=== PATIENT | female | born 1970 | race Caucasian/White ===

== ENCOUNTER → 2024-03-11 13:28 | Outpatient (REF) | payer OTHER, SELFPAY | LOC: HWRAD 13:28 | PROVIDERS: ATTENDING PHYSICIAN Family Medicine | DX: M25.552 Pain in left hip (principal) | CPT/HCPCS: 73523 ==

== ENCOUNTER → 2024-03-31 08:18 | Outpatient (REF) | payer OTHER, SELFPAY | LOC: HWWDC 08:18 | PROVIDERS: ATTENDING PHYSICIAN Obstetrics & Gynecology Gynecology; FAMILY PHYSICIAN Family Medicine | DX: Z12.31 Encounter for screening mammogram for malignant neoplasm of breast (principal) | CPT/HCPCS: 77063; 77067 ==

== ENCOUNTER 2024-05-06 22:40 | Observation (INO) | payer OTHER, SELFPAY ==
[2024-05-06 18:53] VITALS: BP 180/101
[2024-05-06 20:01] VITALS: BP 203/96
[2024-05-06 20:14] VITALS: BMI 34.7
--- NOTE | 2024-05-06 20:28 | ED.GENMED ---
History of Present Illness
General
Chief Complaint: Change in Mental Status
Source: patient
Exam Limitations: none
Time Seen by Provider: 05/06/24 20:13
Nursing documentation reviewed up to this point in time: agreed with
History of Present Illness
History of Present Illness:
Patient to ED for change in mental status. Spouse states davon attended a memorial today for her sponsor (recovering alcoholic). Gonzales spouse reports patient 'did not look right' States she was not answerering questions correctly. She
reports patient may have taken a double dose of her medications gonzales but does not know which ones. Patient states she has felt forgetful for the past year. SHe was seen by neurology last week, MRI and labs are pending. SHe is concerned that
she has dementia 'Like my mother'. Brought to ED by spouse for eval.
Past History
Past History
ED Past Medical History: None and Psychiatric
ED Past Surgical History: Other (tonsils, breast reduction, gastric sleeve)
Social History
Tobacco: Non-smoker
Alcohol: Former
Drug: Marijuana (Medical marijuana)
Personal: Partner
Living: with family
Employment: Employed
Family History
Family History: Negative Early CAD or Sudden
Review of Systems
Review of Systems
Allergies reviewed?: Yes
All Other Systems: ROS reviewed and negative except as documented in HPI and ROS
Constitutional: Reports no symptoms
EENT: Reports no symptoms
Respiratory: Reports no symptoms
Cardiac: Reports no symptoms
ABD/GI: Reports no symptoms
Musculoskeletal: Reports no symptoms
Skin: Reports no symptoms
Neurological: Reports other (forgetful)
Psychiatric: Reports depression and anxiety
Phy Exam
General Physical Exam
General Presentation: mild distress
General age: appears stated age
General Skin: warm and dry
General Habitus: normal
Cardiovascular Exam
Cardiovascular Exam: regular rate/rhythm
Pulmonary Exam
Pulmonary Exam: lungs clear and no respiratory distress
Gastrointestinal Exam
Gastrointestinal Exam: normal bowel sounds, non tender and soft
Neurological Exam
Neurological Exam: alert, CN II-XII intact, no motor deficits and no sensory deficits
NIH Stroke Score
Level of Consciousness: 0 - Alert
LOC questions: 0-Answers both correctly
LOC Commands: 0-Performs both correctly
Best Gaze: 0-Normal
Visual Rojas: 0=Normal, no visual loss
Facial palsy: 0=Normal, symmetrical
Motor - Right Arm: 0=No drift 10 seconds
Motor - Left Arm: 0=No drift 10 seconds
Motor - Right Le-No drift 5 seconds
Motor - Left Le-No drift 5 seconds
Limb Ataxia: 0-Absent
Sensation: 0-Normal
Best Language: 0-No aphasia
Dysarthria: 0-Normal
Extinction and Inattention: 0-No abnormality
Total Score:: 0
Musculoskeletal Exam
Musculoskeletal Exam: full ROM and neuro vasc intact
Skin Exam
Skin Exam: normal color, warm/dry and no rash
Psychiatric Exam
Psychiatric Exam: normal mood/affect
Course
Orders/Labs/Results
Orders:
Orders
05/06/24 20:10
Complete Blood Count/With Diff Urgent
Comprehensive Metabolic Panel Urgent
Urinalysis Reflex To Culture Urgent
Date Specimen was Collected: 05/06/24
Time Specimen was Collected: 19:00
Urine Microscopic Reflex Cult Urgent
Urine Culture Urgent
PRINCE Source: U
Specimen Description:
Date Specimen was Collected: 05/06/24
Time Specimen was Collected: 19:00
05/06/24 20:23
CT Head W/o Iv Contrast Urgent
Comment:
Reason For Exam: change in mental status.
05/06/24 20:25
Fentanyl, Urine Urgent
Urine Drug Abuse Screen Urgent
Date Specimen was Collected: 05/06/24
Time Specimen was Collected: 20:23
05/06/24 21:46
Cefepime HCl [Maxipime] 1,000 mg IV NOW STA
05/06/24 22:20
Admit/Transfer Patient As Directed
Co-Sign Provider:
Level of Care: Observation services
Assign to:: Medical/Surgical
Physician / Group: hospitalist
Diagnosis: acute toxic encephalopathy
PRN Pain Medication Management As Directed
May give lesser potent ordered pain med per pt: Yes
preference::
Protocol:: Medication orders for pain may be administered in a
manner that supports deferring to patient preference
when the pt is:
- Requesting an ordered lesser potent pain medication.
Least to most potent pain medications are defined
as: acetaminophen < NSAID < tramadol < opioids
(morphine, oxycodone, hydromorphone).
- Requesting a lesser dose of the same medication IF
ORDERED.
- Requesting a less intrusive route of administration
if both routes are prescribed by the provider (PO <
IV).
05/06/24 22:22
Code Status As Directed
Resuscitation Status: Full Code
05/07/24 00:05
Acetaminophen [Tylenol] 650 mg PO Q4HPRN PRN
Benztropine [Cogentin] 0.25 mg PO Q6HPRN PRN
Risperidone [Risperdal] 0.5 mg PO TIDPRN PRN
05/07/24 00:05
MRI Brain [MR Brain W/o & With Contrast] Routine
Comment:
Reason For Exam: altered mental status of uncertain duration
Recent pill cam endoscopy?: No
Activity As Directed
Activity Level: With Assistance
Vital Signs As Directed
Frequency: Per unit guidelines
Cpap [RESP] Routine
Patient to use own unit?: Yes
DX Deep Vein Thrombosis Video Routine
05/07/24 05:31
B12 [Vitamin B12] IN AM
ESR [Erythrocyte Sed Rate] IN AM
RPR [Syphilis/T. pallidum Ab Reflex] IN AM
TSH Reflex To Free T4 IN AM
05/07/24 06:00
Levothyroxine [Synthroid] 75 mcg PO DAILY@0600
05/07/24 08:00
Gabapentin [Neurontin] 300 mg PO TID
Lamotrigine [Lamictal] 300 mg PO DAILY
acamprosate 333 mg PO DAILY
estradiol-norethindrone acet 1 tablet PO DAILY
05/07/24 11:38
Urinalysis IN AM
Date Specimen was Collected: 05/07/24
Time Specimen was Collected: 11:35
05/07/24 18:00
Enoxaparin Sodium [Lovenox] 40 mg SC QPM
05/07/24 22:00
Aripiprazole [Abilify] 2 mg PO HS
CefTRIAXone [Rocephin] 1,000 mg IV Q24H
Abnormal Lab Results
05/06/24 05/06/24
20:10 20:25
Sodium 133 L mmol/L
(135-145)
Chloride 96 L mmol/L
(98-107)
Glucose 110 H mg/dl
(70-99)
Ur Occult Blood Reflex 1+ A
(Negative)
Leukocyte Esterase Rfl 2+ A
(Negative)
Urine RBC 3-6 A /HPF
(0-2)
Urine WBC (Reflex) 90-100 A /HPF
(0-5)
Urine Bacteria (Reflex) Many A
(Negative)
Ur Amphetamines Screen Positive H
(Negative)
U Methamphetamines Scrn Positive H
(Negative)
U Marijuana (THC) Screen Positive H
(Negative)
05/06/24 20:10
05/06/24 20:10
Vital Signs
Initial and Last Documented VS:
Initial Vital Signs
Temp Pulse Resp BP Pulse Ox
99.8 F 75 18 180/101 96
05/06/24 18:53 05/06/24 18:53 05/06/24 18:53 05/06/24 18:53 05/06/24 18:53
Last Documented Vital Signs
Temp Pulse Resp BP Pulse Ox
98.7 F 66 16 141/87 95
05/07/24 07:20 05/07/24 07:20 05/07/24 07:20 05/07/24 07:20 05/07/24 07:20
MDM/Problems Addressed
Differential Diagnosis Includes:
Patient brought to ED by sig/other for eval of increased confusion. Concern that patient may have taken a double dose of her medications this evening but spouse is not sure. Patient admits to increased stress with mother and AA sponsor dying but
denies wanting to harm self. She states she has felt more confused over the past year. Saw a neurologist last week and was given Rx for MRI. Labs reviewed [facility] patient and spouse. NIH score 0. Ct of head normal. UA reflecting UTI,, antonella place on
antibiotic pending culture results. Patient continues to repeat herself, continues to be forgetful. WIll admit to hospitalist for change i mental status (overmedication possibly), UTI,
*Critical Care Note
Total Time (30-74mins, 75-104mins- exclusive of procedures): Not Applicable
ED Attending Note
-
Portions of this chart may have been created with voice recognition software.� Occasional wrong word or��sound alike� substitutions may have occurred due to the inherent limitations of voice recognition software.
Discharge Plan
Departure
Patient Disposition: Admit
Date of Disposition: 05/06/24
Time of Disposition: 21:35
Presentation/result/management discussed w/ accepting MD/DO: Hospitalist
Patient with high blood pressure during this ER visit?: No
Condition: Fair
Covid-19: Not Applicable
Discharge Problem:
Altered mental status, UTI (urinary tract infection)
Interventions
Interventions:
*Risk Screen - Suicide Last Done: 05/06/24 18:52
*General Assessment Last Done: 05/06/24 20:14
*Neglect/Abuse Screening Last Done: 05/06/24 20:14
ED- Fall Risk Assessment Last Done: 05/07/24 00:03
*ED COVID-19 Vaccine History Last Done: 05/06/24 20:14
*Nursing Disposition Last Done: 05/07/24 00:03
ED- Neurological Assessment Last Done: 05/06/24 20:14
ED Swallowing Screen Last Done: 05/06/24 20:14
Discharge Date and Time
Discharge Date/Time: 05/07/24 00:04
[2024-05-06 20:31] LABS: ALT (SGPT) 13 U/L (0-35); AST (SGOT) 22 U/L (14-36); Albumin 4.8 g/dl (3.5-5.0); Alkaline Phosphatase 60 U/L (38-126); Blood Urea Nitrogen 16 mg/dl (7-17); Calcium 8.8 mg/dl (8.4-10.2); Carbon Dioxide 28 mmol/L (22-30); Chloride 96 mmol/L (98-107); Estimated Creatinine Clearance 83 ml/min; Glucose 110 mg/dl (70-99); Potassium 4.2 mmol/L (3.5-5.1); Sodium 133 mmol/L (135-145); Total Bilirubin 0.5 mg/dl (0.2-1.3); Total Protein 7.4 g/dl (6.3-8.2); eGFR > 60.00
[2024-05-06 20:34] LABS: Urine Albumin Trace (Neg - Trace); Urine Bilirubin Negative (Negative); Urine Character Slightly Cloudy (Clear); Urine Color Straw; Urine Glucose Negative (Negative); Urine Ketone Negative (Negative); Urine Leukocyte 2+ (Negative); Urine Nitrite Negative (Negative); Urine Occult Blood 1+ (Negative); Urine Urobilinogen Negative (Neg - 1+)
[2024-05-06 20:38] LABS: % Basophils 0.6 % (0-2); % Eosinophils 0.2 % (0-6); % Immature Granulocytes 0.4 % (0-0.5); % Lymphocytes 27.5 % (20.5-51.1); % Monocytes 6.1 % (1.7-9.3); % Neutrophils 65.2 % (42.2-75.2); Absolute Lymphocytes 1.3 10^3/uL (1.2-3.4); Absolute Monocytes 0.3 10^3/uL (0.1-0.6); Absolute Neutrophils 3.1 10^3/uL (1.4-6.5); Hematocrit 40.2 % (37.0-47.0); Hemoglobin 13.9 g/dL (12.0-16.0); Mean Corp Hgb Conc. 34.6 g/dL (33.0-37.0); Mean Corpuscular Hgb 29.6 pg (27.0-31.0); Mean Corpuscular Volume 85.7 fL (81.0-99.0); Mean Platelet Volume 9.3 fL (7.4-10.4); Nucleated Red Blood Cells % 0 %; Platelet Count 200 10^3/uL (130-400); Red Blood Cell Count 4.69 10^6/uL (4.20-5.40); Red Cell Dist. Width 11.7 % (11.5-14.5); White Blood Cell Count 4.8 10^3/uL (4.8-10.8)
[2024-05-06 20:41] LABS: Urine Squamous Cell >30 /LPF (Few)
[2024-05-06 20:44] LABS: Urine Bacteria Many (Negative); Urine White Cell 90-100 /HPF (0-5)
[2024-05-06 21:05] LABS: Amphetamines Positive (Negative); Barbiturates Negative (Negative)
[2024-05-06 21:06] LABS: Benzodiazepines Negative (Negative); Buprenorphine Negative (Negative); Cocaine Negative (Negative); Marijuana Positive (Negative); Methadone Negative (Negative); Methamphetamines Positive (Negative); Opiates Negative (Negative); Phencyclidine Negative (Negative); Tricyclic Antidepressants Negative (Negative)
[2024-05-06 21:17] LABS: Fentanyl, Urine Negative (Negative)
[2024-05-06 21:19] VITALS: BP 165/92
--- NOTE | 2024-05-06 22:05 | HPS.HSE ---
Family Physician
-
Family Physician: Lorne Hernandez
Chief Complaint
-
change in mental status
History of Present Illness
This is a 53-year-old female with past medical history of bipolar disorder, YUVAL on CPAP, former alcohol dependence, hypothyroid, remote history of seizures presenting to the emergency department with 1 day history of oral altered mental status.
Patient spouse provided most of the history. Patient arose in usual state of health. She had memorial service for a very close friend and mentor today. After arriving home from the emergency service the patient started to have some confusion.
Spouse reports patient 'did not look right'. States she was not answering questions correctly. She reports patient may have taken a double dose of her medications tonight but does not know which ones. She felt depressed due to the memorial
service. Despite this she was not answering questions appropriately. When asked a question she will answer tangentially on an unrelated manner. When speaking she will sometimes drift off into her unrelated words and sentences. She appears to
forget what she was supposed to be doing. She did not have any dysarthria, dysphagia, facial asymmetry, numbness tingling or weakness. She had no recent cough cold or flulike symptoms. She had no recent dysuria or hematuria. She had no fevers or
chills. Patient's medications have been changed recently. There is an concern of inadvertent doubling up of bipolar medications today. Patient has no recent episodes of seizures. She has no prior CVA. Her psychiatrist recommended not to take
her evening medications.
Patient states she has felt forgetful for the past year. SHe was seen by neurology last week, MRI and labs are pending. She is concerned that she has dementia 'Like my mother'. Brought to ED by spouse for eval.
In the emergency department she had of 99.8, Blood pressure of 165/90, pulse of 77 satting 99% on room air. CT of the head shows no acute abnormalities. CBC was complete within normal limits. Electrolytes BUN/creatinine were within normal limits.
LFTs within normal limits. UA with pyuria, bacteriuria and leukocyte esterase. There were also many squamous cells. Urine tox screen notable for positive amphetamines and marijuana.
Medical History
Past Medical History
Past Medical History: Reports Hypothyroidism and Psychiatric
Additional Past Medical History:
bipolar
YUVAL on CPAP
Past Surgical History: Reports None
Social History
Tobacco: Non-smoker
Alcohol: Former
Drug: None
Personal:
Living: With Family
Family History
Family History: Not pertinent
Allergies / Home Medications
Allergies reflects when Allergies were last updated in [employer].
Home Medications with original date entered in [employer]
Allergy/Medication List:
Allergies
Allergy/AdvReac Type Severity Reaction Status Date / Time
bee pollen Allergy Swelling Verified 11/09/21 22:56
Home Medications
gabapentin 300 mg capsule 300 mg PO TID 08/13/19
trazodone 100 mg tablet 100 mg PO HSPRN PRN sleep 08/13/19
acamprosate 333 mg tablet,delayed release 333 mg PO DAILY 05/06/24
aripiprazole 2 mg tablet 2 mg PO HS 05/06/24
benztropine 0.5 mg tablet 0.25 mg PO Q6HPRN PRN muscle spasms 05/06/24
estradiol-norethindrone acet 1 mg-0.5 mg tablet 1 tab PO DAILY 05/06/24
lamotrigine 100 mg tablet 100 mg PO DAILY 05/06/24
lamotrigine 200 mg tablet 200 mg PO DAILY 05/06/24
levothyroxine 75 mcg tablet 75 mcg PO DAILY 05/06/24
risperidone 0.5 mg tablet 0.5 mg PO TIDPRN PRN mood disorder 05/06/24
Review of Systems
-
History Source: Patient and Family
Constitutional: Reports No Symptoms
EENT: Reports No Symptoms
Respiratory: Reports No Symptoms
Cardiac: Reports No Symptoms
Abdomen/GI: Reports No Symptoms
: Reports No Symptoms
Musculoskeletal: Reports No Symptoms
Skin: Reports No Symptoms
Neurological: Reports No Symptoms
Endocrine: Reports No Symptoms
Hematologic/Lymphatic: Reports No Symptoms
Psych: Reports Calm
Physical Exam
Vital Signs
Vital Signs
Temp Pulse Resp BP Pulse Ox
99.8 F 72 18 165/92 99
05/06/24 18:53 05/06/24 20:01 05/06/24 20:01 05/06/24 21:19 05/06/24 20:01
Physical Exam
General: Well Developed, Well Nourished, No Apparent Distress and Comfortable
HEENT: NormoCephalic, Anicteric, Moist mucous membranes and Atraumatic
Respiratory: Clear
Cardiac: S1/S2 and Regular Rhythm
Breast: Deferred by me
GI: Soft, Non Tender, Non Distended and Normal Bowel Sounds
Rectal: Deferred by Provider
Genito-urinary: Deferred by me
Musculoskeletal: No Clubbing, No Cyanosis and No Edema
Skin: Warm
Neuro: AO x 3
Hematologic/Lymphatic: Lymphadenopathy
Psych: Calm
Laboratory Results
-
05/06/24 20:10
05/06/24 20:10
Laboratory Results
Total Bilirubin 0.5 mg/dl (0.2-1.3) 05/06/24 20:10
AST 22 U/L (14-36) 05/06/24 20:10
ALT 13 U/L (0-35) 05/06/24 20:10
Alkaline Phosphatase 60 U/L (38-126) 05/06/24 20:10
Data Reviewed
-
CT Scan: Report Reviewed by me
Lab Data: Labs Reviewed by me
Old Records: Reviewed
Impression/Plan
-
IMPRESSION:
Patient with bipolar, former etoh dependence, sober x 7 years, YUVAL on CPAP, hypothyroidism presenting with 1 day of worsening confusion. For me she would answer appropriately then have jumbled words and forgets the question. She is well appearing,
no facial asymmetry, dysarthria or dysphagia. She has no weakness or loss of sensation. CT head is negative. Labs unremarkable. U/A positive for cystitis and urine tox positive for cannabis and amphetamines.
Suspect toxic, metabolic encephalopathy.
PLAN:
1. Altered mental status - Likely toxic encephalopathy in setting of medication overdose, recreational drug exposure (amphetamine/marijuana) and possible UTI. Patient appears to have developing memory difficulties over the last year with outpatient
neuro work up ongoing.
- admit to med-surg obs
- repeat u/a for clean catch
- iv ceftriaxone for now
- check rpr, b12, tsh,
- hold trazodone, abilify and gabapentin tonight, restart abilify and gabaentin tomorrow
- mri in am
2. YUVAL
- CPAP HS
3. Hypothyroid
- checking tsh
- conitnu elevohtyroxine
DVT PPX - lovenox sq
Code status - full code
[2024-05-06] MEDS: MAXIPIME 1000 MG IV (22:32)
[2024-05-07 00:05] VITALS: BP 158/88; BMI 32.7
[2024-05-07] MEDS: SYNTHROID 75 MCG PO (05:33)
--- NOTE | 2024-05-07 06:38 | PTCARENOTE ---
Received pt from ED, AAOx3, x1 to bed. No complaints of pain. Expressive asphasia at times
[2024-05-07 07:08] LABS: TSH Reflex To Free T4 1.29 uIU/ml (0.47-4.68)
[2024-05-07 07:09] LABS: Erythrocyte Sed Rate 13 mm/hour (0-20)
[2024-05-07 07:20] VITALS: BP 141/87
[2024-05-07 07:27] LABS: Vitamin B12 437 pg/ml (239-931)
[2024-05-07] MEDS: LAMICTAL 300 MG PO (08:21)
[2024-05-07] MEDS: NEURONTIN 300 MG PO (08:21)
--- NOTE | 2024-05-07 11:19 | W.PN.HOSP.TC ---
Today's Communication/Plan
-
Discharge
Assessment / Plan
Assessment / Plan
Gen-AAOx3, NAD
HEENT-NC, AT, anicteric, clear oral mm
Neck-supple
CV-reg, no M, +S1/S2
Lungs-clear B/L
Abd-soft, NT, ND
Ext-no edema
Musculoskeletal-no cyanosis, clubbing
Skin-warm and dry
Neuro-grossly non-focal
Psych-calm, cooperative
Acute TME -suspect due to adverse drug reaction, possibly patient took extra dose of home medication. Unclear which medication, but she is on aripiprazole, Risperdal, trazodone, benztropine. Extra doses of any of these meds could potentially cause
confusion. Recommend that patient's closely monitor medication administration. Discussed with patient and family.
Brain MRI negative.
Stable for discharge today, follow-up with neurology and psychiatry, PCP. Patient and agreeable with plan of care.
Asymptomatic pyuria -doubt UTI. Stop further antibiotics. Outpatient follow-up.
YUVAL -on CPAP.
Obesity due to excess calories
Hypothyroidism -levothyroxine.
Full code
Dispo -medically stable for discharge. Outpatient follow-up.
35-minute spent in discharge process.
Anticipated Discharge: Today
Subjective/Interval History
-
Date of Service: May 07, 2024
Patient seen and examined. Feels better today compared to yesterday. Still with mild confusion.
Objective Data
-
Vital Signs:
Vital Signs
Temp Pulse Resp BP Pulse Ox
98.7 F 66 16 141/87 95
05/07/24 07:20 05/07/24 07:20 05/07/24 07:20 05/07/24 07:20 05/07/24 07:20
Review of Systems
-
History Source: Patient
All other systems: Reviewed and negative
--- NOTE | 2024-05-07 11:24 | W.DS.TRANS ---
DC Summary - [employer]
-
Discharge Instructions:
Discharge Diagnosis/Procedures Acute encephalopathy
Diet Regular
Activity As tolerated
Driving Restrictions As prior to admission
Bathing Restrictions None
Instructions:
Stand-Alone Forms:
Changes to Home Medications: No
Discharge Medications:
DC Medications w/original date entered in [employer]
gabapentin 300 mg capsule 300 mg PO TID 08/13/19
trazodone 100 mg tablet 100 mg PO HSPRN PRN sleep 08/13/19
acamprosate 333 mg tablet,delayed release 333 mg PO DAILY 05/06/24
aripiprazole 2 mg tablet 2 mg PO HS 05/06/24
benztropine 0.5 mg tablet 0.25 mg PO Q6HPRN PRN muscle spasms 05/06/24
estradiol-norethindrone acet 1 mg-0.5 mg tablet 1 tab PO DAILY 05/06/24
lamotrigine 100 mg tablet 100 mg PO DAILY 05/06/24
lamotrigine 200 mg tablet 200 mg PO DAILY 05/06/24
levothyroxine 75 mcg tablet 75 mcg PO DAILY 05/06/24
risperidone 0.5 mg tablet 0.5 mg PO TIDPRN PRN mood disorder 05/06/24
Home Medication Changes
Pending Results: No
[2024-05-07] MEDS: AFLURIA (36 mos+) 2024-2025 FORMULA 0.5 ML IM (11:40)
--- NOTE | 2024-05-07 11:59 | CM ---
Patient seen bedside with , initial assessment completed. Patient resides with spouse in a multiple story home, three steps to enter. Patient denies DME, VN, or SNF history. Patient PCP Dr. Hernandez, recently retired, will be finding new PCP once
patient switches insurances in June. Patient pharmacy [facility] in [place], confirms prescription coverage. Patient denies insecurities at home. CM reviewed OBS status, signed, placed in chart. Patient for discharge today. CM will continue to
follow for all discharge planning needs.
Plan; home no needs.
[2024-05-07 12:05] LABS: Urine Albumin Negative (Neg - Trace); Urine Bilirubin Negative (Negative); Urine Character Clear (Clear); Urine Color Yellow; Urine Glucose Negative (Negative); Urine Ketone Negative (Negative); Urine Leukocyte 1+ (Negative); Urine Nitrite Negative (Negative); Urine Occult Blood Negative (Negative); Urine Urobilinogen Negative (Neg - 1+); Urine pH 6.5 (5.0-9.0)
--- NOTE | 2024-05-07 12:20 | PTCARENOTE ---
IV discontinued. Discharge paperwork printed and reviewed with patient and spouse who verbalized understanding.
[2024-05-07 12:22] LABS: Urine Mucus Moderate; Urine Squamous Cell 16-20 /LPF (Few)
[2024-05-07 12:24] LABS: Urine Red Blood Cell 0-2 /HPF (0-2)
[2024-05-08 14:11] LABS: Syphilis/T. pallidum Ab Reflex Negative (Negative)
== END 2024-05-07 12:30 | disposition home or self-care (01) ==
LOC: 4 EAST ACU 22:40
PROVIDERS: Emergency Medicine; Nurse Practitioner; ADMITTING PHYSICIAN Internal Medicine; ATTENDING PHYSICIAN Hospitalist; EMERGENCY PHYSICIAN Emergency Medicine; FAMILY PHYSICIAN Family Medicine
DX: T43.591A Poisoning by other antipsychotics and neuroleptics, accidental (unintentional), initial encounter (principal); T43.211A Poisoning by selective serotonin and norepinephrine reuptake inhibitors, accidental (unintentional), initial encounter; G92.8 Other toxic encephalopathy; Y92.9 Unspecified place or not applicable; F10.21 Alcohol dependence, in remission; F31.9 Bipolar disorder, unspecified; E66.09 Other obesity due to excess calories; G47.33 Obstructive sleep apnea (adult) (pediatric); R41.3 Other amnesia; R82.81 Pyuria; R82.71 Bacteriuria; E03.9 Hypothyroidism, unspecified; Z82.0 Family history of epilepsy and other diseases of the nervous system; Z91.030 Bee allergy status; Z79.890 Hormone replacement therapy; Z23 Encounter for immunization; Z68.32 Body mass index [BMI] 32.0-32.9, adult; Z63.4 Disappearance and death of family member; Z98.84 Bariatric surgery status
CPT/HCPCS: 70450; 70553; 80053; 80306; 80307; 81003; 81015; 82607; 84443; 85025; 85652; 86780; 87086; 90686; 99285; A9575; G0008; G0378

== ENCOUNTER → 2025-04-05 08:23 | Outpatient (REF) | payer BC, SELFPAY | LOC: HWWDC 08:23 | PROVIDERS: ATTENDING PHYSICIAN Obstetrics & Gynecology Gynecology | DX: Z12.31 Encounter for screening mammogram for malignant neoplasm of breast (principal) | CPT/HCPCS: 77063; 77067 ==